=== PATIENT | female | born 1995 | race Caucasian/White ===

== ENCOUNTER 2017-04-20 14:20 | Emergency (ER) | payer OTHER ==
[2017-04-20 14:31] VITALS: RESP 14; O2SAT 96
[2017-04-20] MEDS ORDERED: IBUPROFEN 600 MG TAB PO ONE (15:15)
--- NOTE | 2017-04-20 15:47 | EDPHY ---
General Narrative: CHIEF COMPLAINT: Left ankle pain, injury HISTORY OF PRESENT ILLNESS: Patient complains of sudden onset of left ankle pain today when she twisted her ankle. She was walking when her shoe slid out from under her, and her ankle inverted. Pain is severe over the lateral malleolus pets moderate over the medial malleolus. No numbness or tingling. No pain in the left knee or left heel. Worse with palpation. Difficulty to bear weight. It is only 3/10 when resting. No other associated complaints or modifying factors. ESTABLISHED ORTHOPEDIST: None REVIEW OF SYSTEMS: Ten systems reviewed and are negative unless otherwise noted in the HPI PAST MEDICAL HISTORY: No medical history PAST SURGICAL HISTORY: None SOCIAL HISTORY: Nonsmoker. Senior student at [employer]. Originally from [place] FAMILY HISTORY: EXAMINATION General Appearance: Alert, no distress Cardiovascular: Pulses normal throughout. Symmetric DP pulses. Symmetric PT pulses. Brisk cap refill Neurological: A&O, sensory symmetric, strength symmetric with no footdrop Skin: Warm and dry, no rash. No lacerations abrasions or contusions Extremities: No tenderness of the proximal left fibula. There is moderate edema to the left lateral malleolus. Minimal edema to the left medial malleolus. There is no midfoot tenderness on the left. No left heel tenderness. Range of motion is intact but painful. Neurovascular intact distal to her injury Psychiatric: Mood and affect normal DIFFERENTIAL DIAGNOSES: Including but not limited to sprain, strain, fracture, dislocation, fracture dislocation MDM: 3:45 p.m. Acute left ankle sprain that appears to be moderate to severe. X-ray reveals a possible, very small avulsion fracture off the lateral malleolus. There is no such injury on the medial malleolus. There is no tenderness of the proximal fibula. She is neurovascular intact with no calcaneal tenderness. I will place her in a [place] boot. She is weight-bearing as tolerated. Advance slowly. Follow up with Orthopedics for definitive care. Ice and elevate the extremity often. Ibuprofen 6 mg every 8 hours as needed. ED precautions discussed. She is comfortable this plan. ED Precautions: Worsening pain. Erythema, edema, cyanosis, pallor, paresthesia or anesthesia. - History Smoking Status: Never smoked - Objective Vital Signs: Initial Vital Signs Temperature (C) 99.0 F 04/20/17 14:25 Heart Rate 68 04/20/17 14:25 Respiratory Rate 14 04/20/17 14:25 Blood Pressure 126/72 H 04/20/17 14:25 O2 Sat (%) 96 04/20/17 14:25 O2 Delivery Mode Room Air Allergies/Adverse Reactions: No Known Allergies Allergy (Unverified 04/20/17 14:25) Home Medications: Medication Instructions Recorded Acetaminophen/Codeine 300/30Mg 1 each PO Q6 PRN #15 tab 04/20/17 [Tylenol #3 (*)] Medications Given: Discontinued Medications Ibuprofen (Motrin) 600 mg PO EDNOW ONE Stop: 04/20/17 15:16 Last Admin: 04/20/17 15:19 Dose: 600 mg Departure - Departure Disposition: Home, Routine, Self-Care Clinical Impression: Sprain of ankle Condition: Fair Instructions: Ankle Sprain (ED) Additional Instructions: 1. Ice and elevate the extremity often 2. Ibuprofen 600 mg every 8 hours 3. Pain medication as prescribed as needed 4. Orthopedic follow-up for definitive care 5. ED precautions as discussed Referrals: NONE *PRIMARY CARE P,. [Primary Care Provider] - As per Instructions Alfonso Yanez MD [Medical Doctor] - As per Instructions Stand Alone Forms: School Excuse Prescriptions: Acetaminophen/Codeine 300/30Mg [Tylenol #3 (*)] 1 each PO Q6 PRN #15 tab PRN Reason: Pain, Mild
[2017-04-20 16:07] VITALS: BP 119/66; PULSE 63; TEMP 98.8
== END 2017-04-20 16:07 | disposition home or self-care (01) ==
DX: S93.402A Sprain of unspecified ligament of left ankle, initial encounter (principal); X58.XXXA Exposure to other specified factors, initial encounter; Y99.8 Other external cause status; Y93.01 Activity, walking, marching and hiking
CPT/HCPCS: L4386